=== PATIENT | male | born 1995 | race Two or more races ===

== ENCOUNTER 2024-12-18 19:52 | Emergency (ER) | payer MEDICAID ==
[~2024-12-18] VITALS: Ht 185.4 cm; Wt 95.2 kg
[2024-12-18 20:03] VITALS: TEMP 97.9
[2024-12-18] MEDS ORDERED: iohexol 350MG/ML 100ml bottle IV ONE (22:57)
--- NOTE | 2024-12-18 23:25 | RADIOLOGY REPORT ---
EXAM: CT CT HEAD INDICATION: Anisocoria TECHNIQUE: CT of the head without intravenous contrast. Radiation Dose Information: CT Dose: CTDI volume is 67.13 mGy. Dose-length product is 1296.24 mGy*cm The dose indicators for CT are the volume Computed Tomography (CT) Dose Index (CTDIvol) and the Dose Length Product (DLP), and are measured in units of mGy and mGy-cm, respectively. These indicators are not patient dose, but values generated from the CT scanner acquisition factors. The report includes radiation exposure data for exposures received during this examination. COMPARISON: None FINDINGS: The cerebral parenchyma appears to be normal configuration and attenuation. 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 There is a cavum septum pellucidum. The ventricles, cisterns, and sulci appear age -appropriate. There is no evidence for acute territorial infarct, hemorrhage, or mass effect. The orbits are normal. There is minimal mucosal thickening within the maxillary antra. Paranasal sin uses and mastoid air cells are otherwise clear. The soft tissues and osseous structures appear withi n normal limits. IMPRESSION: 1. No acute territorial infarct, intracranial hemorrhage, or mass effect. 2. If clinical symptoms persist, MRI may be beneficial in further evaluation.
--- NOTE | 2024-12-18 23:29 | RADIOLOGY REPORT ---
INDICATION: Anisocoria COMPARISON: None TECHNIQUE: CTA imaging of the head was performed through the cowl[place] of Junior following the uneventf ul administration of intravenous contrast. Sagittal and coronal reformatted images were obtained from the source data. 3D/MIP post-processing of the source data set was performed and reviewed by the radiologist. Radiation Dose Information: CT Dose: CTDI volume is 66.84mGy., DLP 1381.72 mGy.cm FINDINGS: The caliber and course of the distal internal carotid arteries is unremarkable. No evidence of high-g rade stenosis or occlusion of the proximal branch vessels of the cowlitz of Junior. The anterior commu nicating artery is present. The V4 segments of the bilateral vertebral arteries are unremarkable in c aliber. The posterior inferior cerebellar arteries are grossly unremarkable. Bilateral posterior comm unicating arteries are present. No evidence of large aneurysm or arteriovenous malformation. IMPRESSION: 1. No acute abnormality identified. All CT scans at this medical facility are performed using dose modulation techniques as appropriate t o a performed exam including the following: Automated exposure control was utilized; adjustment of th e MA and/or KV according to patient size; and use of iterative reconstruction technique.
--- NOTE | 2024-12-19 00:22 | Physician Documentation ---
History of Present Illness ~ Chief Complaint: See Chief Complaint Stated Complaint: EYE PAIN Time Seen by MD: 21:30 Mode of Arrival: Ambulatory HPI Patient comes in today with complaints of painless Anisocoria, with larger pupil on the right side than on the left. Patient states for the last month or two he has been wearing his left contact without also wearing the right one. Patient denies any visual changes or pain and has no other concern or complaint at this time. He denies any headache or fevers or chills or recent illness. Medication Reconciliation Allergies: Coded Allergies: No Known Allergies (Unverified , 12/18/24) Past Medical History Smoking Status: Never smoker Review of Systems Constitutional: Denies: chills, fever, weakness Eyes: Denies: pain, blurred vision ENT: Denies: ear pain, nose pain, throat pain, mouth pain Respiratory: Denies: cough, shortness of breath Cardiovascular: Denies: chest pain, palpitations Gastrointestinal: Denies: abdominal pain, nausea, vomiting Genitourinary: Denies: burning, dysuria Male Genitalia: Denies: penile discharge, testicular pain Neurological: Denies: headache, dizziness Musculoskeletal: Denies: pain, swelling Integumentary: Denies: rash, lesions Allergic/Immunologic: Denies: hives, itching Hematologic/Lymphatic: Denies: no symptoms reported Psychiatric: Denies: depression, anxiety Physical Exam Vital Signs: Temperature: 97.9, Source: Temporal, Heart Rate: 72, Respiratory Rate: 16, BP: 115/60, Pulse Oximetry: 99, Weight: 95.200 Oxygen Flow Rate: 0 Physical Exam General: Awake and Alert, no acute distress. HEENT: PERRLA, EOM intact bilaterally, peripheral vision intact bilaterally. Anterior chamber pressure is within normal limits bilaterally by tonometry testing , 14 on the right and 18 on the left. Conjunctiva pink, Sclera clear, Mucus Membranes moist. Neck: Supple without masses and tenderness. Resp: Unlabored. Lungs clear to auscultation bilaterally. Heart: Regular Rate and rhythm, normal S1 and S2 without murmur, rub or gallop. Extremities: No cyanosis,clubbing or edema. Skin: Warm and Dry. Progress Results/Orders Results/Orders Orders - ALEX PROCTOR PAC Cta Head (12/18/24 22:45) Ct Head (12/18/24 22:45) Completed Orders - ALEX PROCTOR PAC Cta Head (12/18/24 22:45) Ct Head (12/18/24 22:45) Iohexol 350mg/Ml 100ml (Omnipaque 350mg/ (12/18/24 22:57) Vital Signs 12/18/24 12/18/24 12/18/24 20:03 20:41 22:10 Temp 97.9 Pulse 86 72 Resp 16 16 16 B/P (MAP) 136/82 115/60 (78) Pulse Ox 97 99 O2 Flow Rate 0 EKG/XRAY/CT/US/VASC/MRI CT : Impression CAT SCAN Patient: KERI ELIZALDE Medical Record: [id number] [facility] 1995, Age: 28 Sex: Male Location: ER Patient Status: [facility] ER Service Date/Time: 12/18/242244 Ordering Physician: ALEX PROCTOR PAC Exam: CTA HEAD INDICATION: Anisocoria COMPARISON: None TECHNIQUE: CTA imaging of the head was performed through the jamul of [place] following the uneventful administration of intravenous contrast. Sagittal and coronal reformatted images were obtained from the source data. 3D/MIP post-processing of the source data set was performed and reviewed by the radiologist. Radiation Dose Information: CT Dose: CTDI volume is 66.84mGy., DLP 1381.72 mGy.cm FINDINGS: The caliber and course of the distal internal carotid arteries is unremarkable. No evidence of high-grade stenosis or occlusion of the proximal branch vessels of the jamul of [place]. The anterior communicating artery is present. The V4 segments of the bilateral vertebral arteries are unremarkable in caliber. The posterior inferior cerebellar arteries are grossly unremarkable. Bilateral posterior communicating arteries are present. No evidence of large aneurysm or arteriovenous malformation. IMPRESSION: 1. No acute abnormality identified. All CT scans at this medical facility are performed using dose modulation techniques as appropriate to a performed exam including the following: Automated exposure control was utilized; adjustment of the MA and/or KV according to patient size; and use of iterative reconstruction technique. Electronically Signed by:SAURABH CARLOS MD Date & Time: 12/18/242326 Dictated by: SAURABH CARLOS MD Dictation date and time: 12/18/242326 Primary Care Provider: NO PRIMARY CARE PROVIDER cc: ALEX PROCTOR PAC ~ CAT SCAN Patient: KERI ELIZALDE Medical Record: [id number] [facility] 1995, Age: 28 Sex: Male Location: ER Patient Status: [facility] ER Service Date/Time: 12/18/242244 Ordering Physician: ALEX PROCTOR PAC Exam: CT HEAD EXAM: CT CT HEAD INDICATION: Anisocoria TECHNIQUE: CT of the head without intravenous contrast. Radiation Dose Information: CT Dose: CTDI volume is 67.13 mGy. Dose-length product is 1296.24 mGy*cm The dose indicators for CT are the volume Computed Tomography (CT) Dose Index (CTDIvol) and the Dose Length Product (DLP), and are measured in units of mGy and mGy-cm, respectively. These indicators are not patient dose, but values generated from the CT scanner acquisition factors. The report includes radiation exposure data for exposures received during this examination. COMPARISON: None FINDINGS: The cerebral parenchyma appears to be normal configuration and attenuation. 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 There is a cavum septum pellucidum. The ventricles, cisterns, and sulci appear age-appropriate. There is no evidence for acute territorial infarct, hemorrhage, or mass effect. The orbits are normal. There is minimal mucosal thickening within the maxillary antra. Paranasal sinuses and mastoid air cells are otherwise clear. The soft tissues and osseous structures appear within normal limits. IMPRESSION: 1. No acute territorial infarct, intracranial hemorrhage, or mass effect. 2. If clinical symptoms persist, MRI may be beneficial in further evaluation. Electronically Signed by:SAURABH CARLOS MD Date & Time: 12/18/242321 Dictated by: SAURABH CARLOS MD Dictation date and time: 12/18/242321 Primary Care Provider: NO PRIMARY CARE PROVIDER cc: ALEX PROCTOR ~ Medical Decision Making Findings Patient comes in today with complaints of painless Anisocoria, with larger pupil on the right side than on the left. Patient states for the last month or two he has been wearing his left contact without also wearing the right one. Patient denies any visual changes or pain and has no other concern or complaint at this time. He denies any headache or fevers or chills or recent illness. Patient did have CT of head as well as CT of head as recommended by the neurologist that showed no acute findings. Neurology was consulted and recommended patient follow up with Ophthalmology and/or Neurology with follow up MRI of head. Patient will return to ED with any worsening, concerning or changing symptoms. Departure Disposition: 01 HOME / SELF CARE / HOMELESS Impression: Primary Impression: Anisocoria Condition: Stable Additional Instructions: Patient did have CT of head as well as CT of head as recommended by the neurologist that showed no acute findings. Neurology was consulted and recommended patient follow up with Ophthalmology and/or Neurology with follow up MRI of head. Patient will return to ED with any worsening, concerning or changing symptoms. Referrals: NO PRIMARY CARE PROVIDER (PCP) Signature Scribe Signature: No scribe Attestation: No scribe ALEX PROCTOR Dec 19, 2024 00:22
[2024-12-19 00:34] VITALS: BP 134/80; PULSE 62; RESP 16; O2SAT 99
== END 2024-12-19 00:36 | disposition home or self-care (01) ==
LOC: ER 19:53
DX: H57.02 Anisocoria (principal)
CPT/HCPCS: 70450; 70496; 99285; Q9967